=== PATIENT | male | born 1985 | race Caucasian/White ===

== ENCOUNTER 2017-06-11 02:26 | Observation (INO) | payer OTHER ==
[2017-06-11 03:30] LABS: % IMMATURE GRANULYOCYTES 0.3 % (0.0-1.1); ABSOLUTE IMMATURE GRANULOCYTES 0.03 10^3/uL (0.00-0.10); ADD DIFF? NO; ADD MORPH? NO; ADD SCAN? NO; ATYPICAL LYMPHOCYTE FLAG 10 (0-99); FRAGMENT RBC FLAG 0 (0-99); HEMATOCRIT 41.6 % (40.0-51.0); HEMOGLOBIN 15.4 g/dL (13.7-17.5); LEFT SHIFT FLG 0 (0-99); LIPEMIA HEMOLYSIS FLAG 90 (0-99); MEAN CELL HEMOGLOBIN 33.6 pg (27.9-34.1); MEAN CELL VOLUME 90.6 fL (81.5-99.8); MEAN PLATELET VOLUME 10.1 fL (8.7-11.7); PLATELET CLUMPS FLAG 10 (0-99); PLATELET COUNT 181 10^3/uL (150-400); RED BLOOD CELL COUNT 4.59 10^6/uL (4.40-6.38); RED CELL DISTRIBUTION WIDTH 12.3 % (11.5-15.2)
--- NOTE | 2017-06-11 03:31 | EDPHY ---
H & P Stated Complaint: c/o R facial swelling x 2 days related to tooth abcess, seen at Time Seen by Provider: 06/11/17 03:12 HPI/ROS: Chief Complaint: Facial swelling, tooth pain HPI: 31-year-old male presenting with right-sided tooth pain stents yesterday. He has a history of dental abscesses in the past. Patient was seen at urgent care yesterday and started on oral clindamycin. He has an appointment with a dentist later this afternoon. Patient woke up this morning with significantly worsening swelling in the right side of his face and worsening pain. Does not have any difficulty swallowing or breathing. Denies any fevers or chills. No headache. No nausea or vomiting. ROS: 10 point Review of Systems is negative except as noted in the HPI. PMH: Denies Family History: non-contributory Physical Exam: Gen: Awake, Alert, No Distress HEENT: Patient has significant right facial swelling infraorbitally down over the maxilla. There is no significant pre auricular swelling or tenderness. There is no palpable masses or fluctuance. His extensive dental caries. He has tenderness over the right upper premolars with significant dental decay. He has no trismus. Uvula is midline. No oral pharyngeal erythema. Eyes: PERRLA, EOMI Neck: Supple, no JVD Chest: nontender, lungs clear to auscultation Heart: S1, S2 normal, no murmur Abd: Soft, non-tender, no guarding Back: no CVA tenderness, no midline tenderness Ext: no edema, non-tender Skin: no rash Neuro: CN II-XII intact, Sensation grossly intact, Strength 5/5 in bilateral upper and lower extremities - Medical/Surgical History Hx Asthma: No Hx Chronic Respiratory Disease: No Hx Diabetes: No Hx Cardiac Disease: No Hx Renal Disease: No Hx Cirrhosis: No Hx Alcoholism: No Hx HIV/AIDS: No Hx Splenectomy or Spleen Trauma: No Other PMH: none - Social History Smoking Status: Current every day smoker Constitutional: Initial Vital Signs Temperature (C) 36.4 C 06/11/17 02:36 Heart Rate 100 06/11/17 02:36 Respiratory Rate 18 06/11/17 02:36 Blood Pressure 143/90 H 06/11/17 02:36 O2 Sat (%) 94 06/11/17 02:36 O2 Delivery Mode Room Air Allergies/Adverse Reactions: sulfamethoxazole [From Marra] Allergy (Severe, Verified 06/11/17 02:39) trimethoprim [From Marra] Allergy (Severe, Verified 06/11/17 02:39) Penicillins Allergy (Verified 06/11/17 02:39) Home Medications: Medication Instructions Recorded Clindamycin 06/11/17 Medical Decision Making ED Course/Re-evaluation: Patient has significant right-sided facial swelling secondary to a likely dental abscess. There is no drainable collection on exam at this time. He is failing outpatient oral clindamycin. He will need IV antibiotics and oral surgery consultation. I will discussed with the hospitalist with plan for admission for consultation in the morning. Case discussed with Dr. Sin, hospitalist. She will admit to observation with plan for oral surgery consultation later this morning. - Data Points Laboratory Results: Laboratory Results 06/11/17 03:28 06/11/17 06/11/17 03:28 03:28 WBC 8.58 10^3/uL 10^3/uL (3.80-9.50) RBC 4.59 10^6/uL 10^6/uL (4.40-6.38) Hgb 15.4 g/dL g/dL (13.7-17.5) Hct 41.6 % % (40.0-51.0) MCV 90.6 fL fL (81.5-99.8) MCH 33.6 pg pg (27.9-34.1) MCHC 37.0 g/dL H g/dL (32.4-36.7) RDW 12.3 % % (11.5-15.2) Plt Count 181 10^3/uL 10^3/uL (150-400) MPV 10.1 fL fL (8.7-11.7) Neut % (Auto) 60.8 % % (39.3-74.2) Lymph % (Auto) 24.7 % % (15.0-45.0) Sargent % (Auto) 11.9 % % (4.5-13.0) Eos % (Auto) 1.6 % % (0.6-7.6) Baso % (Auto) 0.7 % % (0.3-1.7) Nucleat RBC Rel Count 0.0 % % (0.0-0.2) Absolute Neuts (auto) 5.21 10^3/uL 10^3/uL (1.70-6.50) Absolute Lymphs (auto) 2.12 10^3/uL 10^3/uL (1.00-3.00) Absolute Monos (auto) 1.02 10^3/uL H 10^3/uL (0.30-0.80) Absolute Eos (auto) 0.14 10^3/uL 10^3/uL (0.03-0.40) Absolute Basos (auto) 0.06 10^3/uL 10^3/uL (0.02-0.10) Absolute Nucleated RBC 0.00 10^3/uL 10^3/uL (0-0.01) Immature Gran % 0.3 % % (0.0-1.1) Immature Gran # 0.03 10^3/uL 10^3/uL (0.00-0.10) Sodium Pending Potassium Pending Chloride Pending Carbon Dioxide Pending Anion Gap Pending BUN Pending Creatinine Pending Estimated GFR Pending Glucose Pending Calcium Pending Medications Given: Clindamycin Phosphate/Dextrose (Cleocin 600 Mg (Premix)) 50 mls @ 100 mls/hr IV EDNOW ONE PRN Reason: Protocol Stop: 06/11/17 04:01 Last Admin: 06/11/17 03:38 Dose: 50 mls Departure - Departure Disposition: [facility] Inpatient Acute Clinical Impression: Facial cellulitis, Dental abscess Condition: Fair Referrals: NONE *PRIMARY CARE P,. [Primary Care Provider] - As per Instructions
[2017-06-11] MEDS ORDERED: CLINDAMYCIN 600 MG/DEXTROSE 50 ML IV ONE (03:32)
[2017-06-11 03:52] LABS: ANION GAP 16 mEq/L (8-16); CALCIUM 8.8 mg/dL (8.5-10.4); CARBON DIOXIDE 22 mEq/l (22-31); CHLORIDE 106 mEq/L (97-110); CREATININE 0.8 mg/dL (0.7-1.3); GLOMERULAR FILTRATION RATE > 60; GLUCOSE 109 mg/dL (70-100); POTASSIUM 4.5 mEq/L (3.5-5.2); SODIUM 144 mEq/L (134-144)
[2017-06-11] MEDS ORDERED: ONDANSETRON DISINTEGRATING 4 MG TAB PO PRN (04:35)
[2017-06-11] MEDS ORDERED: diphenhydrAMINE 25 MG CAP PO PRN (04:35)
[2017-06-11] MEDS ORDERED: ACETAMINOPHEN 325 MG TAB PO PRN (04:35)
[2017-06-11] MEDS ORDERED: LORazepam 0.5 MG TAB PO PRN (04:35)
[2017-06-11] MEDS ORDERED: ONDANSETRON 4 MG/2 ML VIAL IVP PRN ×2 (04:35→18:10)
[2017-06-11] MEDS ORDERED: NS 1,000 ML IV SCH (04:45)
--- NOTE | 2017-06-11 07:38 | PDGENHP ---
History and Physical - Chief Complaint right facial swelling and pain - History of Present Illness Source - patient provides history and appears reliable. Case discussed with ED provider. HPI - Pleasant 31 yo M with pmhx significant for dental abscess and tobacco abuse who presents to the ED today with complaints of worsening right facial pain and swelling. Patient reports longstanding history of dental issues including abscesses. He has had increased pain/swelling right upper jaw. Patient went to see Dental provider yesterday and he was given clindamycin of which patient took 2 doses and advised to go to the ED for worsening symptoms as they were already extensive. Patient reports decreased vision 2/2 swelling right eyelid and not due to changes in unobstructed vision. Patient reports increasing pain right face/surrounding eye. He denies fevers but has had subjective chills since arrival to the floor. Patient reports some nausea without vomiting. alternating diarrhea/constipation but no melena/hematochezia. Patient denies any dysphagia or odynophagia. no c/o sob. History Information - Allergies/Home Medication List Allergies/Adverse Reactions: sulfamethoxazole [From ] Allergy (Severe, Verified 06/11/17 02:39) trimethoprim [From Marra] Allergy (Severe, Verified 06/11/17 02:39) Penicillins Allergy (Verified 06/11/17 02:39) Home Medications: Acetaminophen [Tylenol 325mg (*)] 650 mg PO Q6H PRN 06/11/17 [Last Taken Unknown ] Clindamycin HCl [Clindamycin] 300 mg PO TID 06/11/17 [Last Taken 06/10/17] Ibuprofen [Motrin (*)] 200 - 400 mg PO Q4H PRN 06/11/17 [Last Taken Unknown] I have personally reviewed and updated: family history, medical history, social history, surgical history - Past Medical History Additional medical history: dental abscesses. tobacco dependence - Surgical History Additional surgical history: dental extractions. tympanostomy tubes in childhood. - Family History Negative for: diabetes type II, hypertension - Social History Smoking Status: Current every day smoker Tobacco Use: Cigarettes (0.25 ppd) Alcohol Use: Occasionally Drug Use: Marijuana (1/mo.) Additional social history: Patient lives with 2 roommates. COR FULL - desires mother Kathi Freeman to act as proxy if needed. Review of Systems Review of Systems: ROS: 10pt was reviewed & negative except for what was stated in HPI & below Constitutional: Reports: chills. Denies: fever EENMT: Reports: mouth pain, mouth swelling. Denies: blurred vision, double vision, eye pain, nose congestion, sore throat, throat swelling Cardiac: Denies: chest pain, edema, palpitations Respiratory: Reports: no symptoms. Denies: cough, shortness of breath Gastrointestinal: Reports: constipation, diarrhea, nausea. Denies: vomitting, black stools Genitourinary: Denies: dysuria, hematuria Muscolosketal: Reports: no symptoms. Denies: joint pain, muscle pain Skin: Reports: no symptoms. Denies: change in color, rash Neurological: Reports: headache, numbness (right face), tingling (right face) Hematologic/Lymphatic: Reports: no symptoms Physical Exam Physical Exam: Selected Entries 06/11/17 02:36 Heart Rate 100 Respiratory 18 Rate O2 Sat (%) 94 Temperature (C) 36.4 C Blood Pressure 143/90 H Mean Arterial 107 H Pressure (MAP) O2 Delivery Room Air Mode Temperature Oral Source Temp Pulse Resp BP Pulse Ox 36.6 C 86 18 134/88 H 95 06/11/17 05:12 06/11/17 05:12 06/11/17 05:12 06/11/17 05:12 06/11/17 05:12 Constitutional: uncomfortable, other (NAD. young adult male lays quietly in bed laying still but awake. appears uncomfortable. ) Eyes: PERRL, anicteric sclera, EOMI Ears, Nose, Mouth, Throat: moist mucous membranes, poor dentition Cardiovascular: regular rate and rhythym, no murmur, rub, or gallop, systolic murmur, No edema Peripheral Pulses: 2+: dorsalis-pedis (R), dorsalis-pedis (L) Respiratory: no respiratory distress, no rales or rhonchi, clear to auscultation Gastrointestinal: normoactive bowel sounds, soft, non-tender abdomen, no palpable masses, No tenderness Genitourinary: no bladder tenderness, No coello in urethra Skin: warm, normal color, erythema, other (significant swelling of the right face and periorbitally is noted. patient with limited mobility of eyelid but is still able to open) Musculoskeletal: full muscle strength, No generalized weakness Neurologic: AAOx3, sensation intact bilaterally, numbness (right face), other ( limited CN testing 2/2 pain and edema. ), No weakness Lab Data & Imaging Review 06/11/17 03:28 06/11/17 03:28 WBC 8.58 10^3/uL (3.80-9.50) 06/11/17 03:28 RBC 4.59 10^6/uL (4.40-6.38) 06/11/17 03:28 Hgb 15.4 g/dL (13.7-17.5) 06/11/17 03:28 Hct 41.6 % (40.0-51.0) 06/11/17 03:28 MCV 90.6 fL (81.5-99.8) 06/11/17 03:28 MCH 33.6 pg (27.9-34.1) 06/11/17 03:28 MCHC 37.0 g/dL (32.4-36.7) H 06/11/17 03:28 RDW 12.3 % (11.5-15.2) 06/11/17 03:28 Plt Count 181 10^3/uL (150-400) 06/11/17 03:28 MPV 10.1 fL (8.7-11.7) 06/11/17 03:28 Neut % (Auto) 60.8 % (39.3-74.2) 06/11/17 03:28 Lymph % (Auto) 24.7 % (15.0-45.0) 06/11/17 03:28 Real % (Auto) 11.9 % (4.5-13.0) 06/11/17 03:28 Eos % (Auto) 1.6 % (0.6-7.6) 06/11/17 03:28 Baso % (Auto) 0.7 % (0.3-1.7) 06/11/17 03:28 Nucleat RBC Rel Count 0.0 % (0.0-0.2) 06/11/17 03:28 Absolute Neuts (auto) 5.21 10^3/uL (1.70-6.50) 06/11/17 03:28 Absolute Lymphs (auto) 2.12 10^3/uL (1.00-3.00) 06/11/17 03:28 Absolute Monos (auto) 1.02 10^3/uL (0.30-0.80) H 06/11/17 03:28 Absolute Eos (auto) 0.14 10^3/uL (0.03-0.40) 06/11/17 03:28 Absolute Basos (auto) 0.06 10^3/uL (0.02-0.10) 06/11/17 03:28 Absolute Nucleated RBC 0.00 10^3/uL (0-0.01) 06/11/17 03:28 Immature Gran % 0.3 % (0.0-1.1) 06/11/17 03:28 Immature Gran # 0.03 10^3/uL (0.00-0.10) 06/11/17 03:28 Sodium 144 mEq/L (134-144) 06/11/17 03:28 Potassium 4.5 mEq/L (3.5-5.2) 06/11/17 03:28 Chloride 106 mEq/L (97-110) 06/11/17 03:28 Carbon Dioxide 22 mEq/l (22-31) 06/11/17 03:28 Anion Gap 16 mEq/L (8-16) 06/11/17 03:28 BUN 12 mg/dL (7-23) 06/11/17 03:28 Creatinine 0.8 mg/dL (0.7-1.3) 06/11/17 03:28 Estimated GFR > 60 06/11/17 03:28 Glucose 109 mg/dL (70-100) H 06/11/17 03:28 Calcium 8.8 mg/dL (8.5-10.4) 06/11/17 03:28 Assessment & Plan Assessment: 31 yo M with hx dental abscess now presents with 1 day history of worsening right facial swelling/pain. 1. Facial cellulitis (Acute) - likely 2/2 dental abscess. periorbital involvement noted, no evidence of orbital cellulitis at this time. patient had only 2 doses clinda outpatient will continue with IV and monitor at this time. Patient does not meet SIRS criteria. Further discussion with oral surgery in AM , consider imaging as well if no improvement overnight. 2. Dental abscess (Acute) oral surgery as above 3. elevated blood pressure without history of HTN - likely related to pain. norco, morphine prn. 4. tobacco dependence - cessation encouraged. nicotine patch prn. FEN - IVF while npo. electrolyte replacement if needed. PPX - SCDs. holding anticoagulation pending surgery eval. COR - FULL. patient desires mother Kathi Freeman to act as proxy if needed. Dispo - Admit to observation at this time on medical floor.
[2017-06-11] MEDS: HYDROCODONE/APAP 5/325 TAB PO PRN ×2 (08:52→13:55)
[2017-06-11] MEDS: NICOTINE 21 MG/24 HR PATCH TD SCH (08:53)
[2017-06-11] MEDS ORDERED: IOPAMIDOL (ISOVUE-300) 100 ML BTL ONE (10:23)
[2017-06-11] MEDS ORDERED: CLINDAMYCIN 600 MG/DEXTROSE 50 ML IV SCH (12:00)
--- NOTE | 2017-06-11 14:06 | ASMTCMCOM ---
CM Note CM Note Notes: Pt admitted w/facial cellulitis possibly due to tooth abcess. DC needs not clear yet. Per chart he lives at home w/roommates. May be independant at dc but CM w/f in case that he may need IV ABX's or have other needs. Date Signed: 06/11/2017 02:05 PM Electronically Signed By:Lisette Allen RN
[2017-06-11] MEDS ORDERED: LR 1,000 ML IV ONE (16:32)
--- NOTE | 2017-06-11 16:45 | PDANEPAE ---
ANE History of Present Illness TOOTH ABSCESS ANE Past Medical History - Cardiovascular History Hx Hypertension: No Hx Arrhythmias: No Hx Chest Pain: No Hx Coronary Artery / Peripheral Vascular Disease: No Hx CHF / Valvular Disease: No Hx Palpitations: No - Pulmonary History Hx COPD: No Hx Asthma/Reactive Airway Disease: No Hx Recent Upper Respiratory Infection: No Hx Oxygen in Use at Home: No Hx Sleep Apnea: No Sleep Apnea Screening Result - Last Documented: Negative - Endocrine History Hx Diabetes: No Obesity: no - Chronic Pain History Chronic Pain: No ANE Review of Systems Review of systems is: negative Review of Systems: - Exercise capacity Exercise capacity: >=4 METS ANE Patient History - Allergies Allergies/Adverse Reactions: sulfamethoxazole [From Marra] Allergy (Severe, Verified 06/11/17 02:39) trimethoprim [From Septra] Allergy (Severe, Verified 06/11/17 02:39) Penicillins Allergy (Verified 06/11/17 02:39) - Home Medications Home medications: home medication list seen and reviewed Home Medications: Acetaminophen [Tylenol 325mg (*)] 650 mg PO Q6H PRN 06/11/17 [Last Taken Unknown ] Clindamycin HCl [Clindamycin] 300 mg PO TID 06/11/17 [Last Taken 06/10/17] Ibuprofen [Motrin (*)] 200 - 400 mg PO Q4H PRN 06/11/17 [Last Taken Unknown] - NPO status NPO Since - Liquids (Date): 06/11/17 NPO Since - Liquids (Time): 03:00 NPO Since - Solids (Date): 06/10/17 NPO Since - Solids (Time): 17:00 - Anes Hx Anes Hx: no prior problems - Smoking Hx Smoking Status: Current every day smoker - Alcohol Use Alcohol Use: Occasionally ANE Labs/Vital Signs - Labs Result Diagrams: 06/11/17 03:28 06/11/17 03:28 - Vital Signs Blood Pressure: 133/95 Heart Rate: 70 Respiratory Rate: 16 O2 Sat (%): 96 Height: 185.42 cm Weight: 97.625 kg ANE Physical Exam - Airway Neck exam: FROM Mallampati Score: Class 2 Mouth exam: small mouth opening - Pulmonary Pulmonary: no respiratory distress - Cardiovascular Cardiovascular: regular rate and rhythym - ASA Status ASA Status: II ANE Anesthesia Plan Anesthesia Plan: general endotracheal anesthesia Specialized Airway: video laryngoscope
[2017-06-11] MEDS ORDERED: LIDO/EPI 2%** Not for Epidural 20 ML MDV ONE (16:51)
[2017-06-11] MEDS ORDERED: BUPIVACAINE 0.25% 30 ML SDV ONE (16:51)
[2017-06-11] MEDS ORDERED: ALBUTEROL HFA ANES ONLY 200 PUFFS/8.5 GM MDI IH ONE (17:02)
[2017-06-11] MEDS ORDERED: PROPOFOL 200 MG/20 ML VIAL ONE ×2 (17:03)
[2017-06-11] MEDS ORDERED: fentaNYL 100 MCG/2 ML INJ ONE ×2 (17:03→17:50)
[2017-06-11] MEDS ORDERED: LIDOCAINE 2% JELLY 20 ML (UROJECT) ONE (17:05)
[2017-06-11] MEDS ORDERED: LIDOCAINE 2% JELLY 5 ML TUBE ONE (17:05)
[2017-06-11] MEDS ORDERED: OXYMETAZOLINE 30 ML NASAL SPRAY ONE (17:08)
[2017-06-11] MEDS ORDERED: CHLORHEXIDINE GLUCONATE 15 ML UDL ONE (17:10)
[2017-06-11] MEDS ORDERED: LIDOCAINE 2% 5 ML SDV ONE (17:15)
[2017-06-11] MEDS ORDERED: MIDAZOLAM 2 MG/2 ML VIAL ONE (17:20)
[2017-06-11] MEDS ORDERED: MIDAZOLAM 2 MG/2 ML VIAL IVP ONE (17:20)
[2017-06-11] MEDS ORDERED: ONDANSETRON 4 MG/2 ML VIAL ONE (17:23)
[2017-06-11] MEDS ORDERED: KETOROLAC 30 MG/1 ML SDV ONE (17:23)
[2017-06-11] MEDS ORDERED: DEXAMETHASONE 4 MG/ML VIAL ONE (17:23)
--- NOTE | 2017-06-11 17:24 | HOSPPROG ---
Hospitalist Progress Note Assessment/Plan: * Facial cellulitis -suspect dental abscess as source -IV clinda -consult ID - d/w Dr. Quick * Dental abscess -CT without large abscess -oral surgery consulted - d/w Dr. Vasquez * Tobacco dependence -advise cessation Subjective: no complaints Objective: Vital Signs Temp Pulse Resp BP Pulse Ox 36.8 C 70 16 133/95 H 96 06/11/17 16:27 06/11/17 16:46 06/11/17 16:46 06/11/17 16:46 06/11/17 16:[address] - no big abscess Laboratory Tests 06/11/17 03:28 WBC 8.58 Hct 41.6 Plt Count 181 - Physical Exam Constitutional: no apparent distress, appears nourished, not in pain Cardiovascular: regular rate and rhythym, no murmur, rub, or gallop Respiratory: no respiratory distress, no rales or rhonchi, clear to auscultation Gastrointestinal: normoactive bowel sounds, soft, non-tender abdomen, no palpable masses Skin: other (large swelling right side of face, minimal erythema, saeed-orbital swelling) Musculoskeletal: full muscle strength, no muscle tenderness, normal joint ROM Psychiatric: interacting appropriately, not anxious, not encephalopathic, thought process linear ICD10 Worksheet Patient Problems: Problems Problem Status Onset Dental abscess Acute Facial cellulitis Acute
[2017-06-11] MEDS ORDERED: HYDROCODONE/APAP 5/325 TAB PO PRN (18:10)
[2017-06-11] MEDS ORDERED: ACETAMINOPHEN 500 MG TAB PO PRN (18:10)
[2017-06-11] MEDS ORDERED: OXYCODONE/APAP 5/325 TAB PO PRN (18:10)
[2017-06-11] MEDS ORDERED: ALBUTEROL 3 ML DEYVIAL IH PRN (18:10)
[2017-06-11] MEDS ORDERED: fentaNYL 100 MCG/2 ML INJ IVP PRN (18:10)
[2017-06-11] MEDS ORDERED: PROMETHAZINE HCL 25 MG/ML INJ IVP PRN (18:10)
[2017-06-11] MEDS ORDERED: NALOXONE HCL 0.4 MG/ML INJ IVP PRN (18:10)
[2017-06-11] MEDS ORDERED: HYDROmorphONE/DILAUDID 1 MG/ML INJ IVP PRN (18:10)
--- NOTE | 2017-06-11 18:10 | POSTANESTH ---
Post Anesthetic Evaluation Cardiovascular Status: Normal, Stable Respiratory Status: Normal, Stable Level of Consciousness/Mental Status: Can Participate in Eval Pain Control: Adequate, Prn Tx Ordered Nausea/Vomiting Control: Adequate, Prn Tx Ordered Complications Possibly Related to Anesthesia: None Noted
--- NOTE | 2017-06-11 18:11 | GCON ---
[f rep st] CONSULTATION INFECTION DISEASES CONSULTATION DATE OF CONSULTATION: 06/11/2017 REFERRING PHYSICIAN: Joie Rosen MD REASON FOR CONSULTATION: Facial cellulitis. HISTORY OF PRESENT ILLNESS: Patient is a 31-year-old male with a past medical history of frequent od ontogenic abscesses, whom I am asked to see in consultation for a right-sided facial cellulitis. The patient describes having a root canal on an upper molar along the right maxillary ridge approximatel y 3.5 weeks ago. Prior to his root canal, he had been taking oral clindamycin. Yesterday, he awoke with facial pain and swelling just above the tooth overlying the cheek. This progressed and was asso ciated with faint erythema below the right eye, which became swollen shut. He was seen in urgent car e and started on oral clindamycin. He was advised if symptoms worsened that he should seek care in [facility] emergency department. Despite the oral clindamycin, his symptoms progressed with more facial swel ling and difficulty opening his mouth. He, therefore, presented to the emergency department for furt her evaluation. He has not had fevers, but he does describe having some chills. He has not had martine k eye pain or visual disturbance other than that caused by when his eye was swollen shut. His eye is no longer swollen shut. He has had some mild nausea, but no vomiting. He describes having some alt ernating diarrhea and constipation. His oral intake has been limited due to difficulty opening his m outh. He does not have any anterior neck pain. He describes requiring hospital admission several ye ars ago associated with an odontogenic abscess that required drainage. Patient has been started on I V clindamycin as he has an underlying penicillin allergy. Based on the above findings, I am now aske d to assist in his ongoing management. PAST MEDICAL HISTORY: Recurrent odontogenic abscess. PAST SURGICAL HISTORY: Dental extractions. CURRENT MEDICATIONS: Clindamycin 600 mg IV q.8 hours, Hardin as needed for pain, Ativan as needed for anxiety, morphine as needed for pain. ALLERGIES: Penicillin as a child, which he states caused hospitalization for several days; sulfonami joel with unclear reaction as a child. SOCIAL HISTORY: Patient smokes 1/2 pack per day. He drinks alcohol socially. Occasional marijuana use. Prior HIV testing has been negative. FAMILY HISTORY: Alcoholism in his father, Graves disease in his mother. REVIEW OF SYSTEMS: Outside that noted in the HPI, the remainder of a 10-system review is unremarkabl e. PHYSICAL EXAMINATION: VITAL SIGNS: Temperature 36.7, heart rate 83, respiratory rate 16, blood pres sure 137/96, oxygen saturation 95% on room air. GENERAL: Patient is well nourished, well developed, in no acute distress. He appears nontoxic. HEENT: There is no scleral icterus, conjunctival injec tion, or conjunctival petechiae. There is faint erythema underlying the right infraorbital region. This area has associated edema. The edema extends over the majority of the patient's cheek. He is t baron over the maxillary region to palpation. Extraocular muscles are intact. There is no proptosis . The patient has significant tenderness to palpation over a predominantly resorbed tooth on the rig ht maxillary ridge. There is no nasal discharge or erythema. There is no tenderness over the sinuse s other than the right maxillary region. NECK: Supple without palpable lymphadenopathy or thyromega ly. There is no erythema over the anterior neck. There is no palpable fluctuance or crepitus. CHES T: Clear to auscultation bilaterally without adventitious sounds. Respiratory effort is normal. CA RDIOVASCULAR: Regular rate and rhythm without murmurs, gallops, or rubs. ABDOMEN: Soft, nontender, nondistended. There is no palpable organomegaly. Bowel sounds are present. MUSCULOSKELETAL: No c yanosis, clubbing, or edema. SKIN: See HEENT exam; there are no stigmata of endocarditis. Skin is warm and dry to touch. NEUROLOGIC: Patient is alert and interacts appropriately with examiner. Commercial Engineer nial nerves 2-12 are grossly intact. Sensation is grossly intact. Muscle tone and bulk are normal. LYMPHATICS: No cervical or supraclavicular nodes palpable. LABORATORY DATA: White blood cell count 8.6, hematocrit 41.6, platelets 181, neutrophils 61%, lympho cytes 25%. Serum creatinine is 0.8. IMAGING DATA: CT scan of the face shows no evidence of abscess; these images are reviewed with Radio logy today showing some periapical lucency around the small residual tooth on the right maxillary rid ge. There is some thickening of the right maxillary sinus without air-fluid level. IMPRESSION: Right facial cellulitis, likely of odontogenic etiology given onset associated with incr easing tenderness in residual right maxillary tooth that is status post root canal 3.[address] likely, this will be associated with odontogenic chris. Appearance is not suggestive of other maria dolores ologies such as erysipelas. Patient has a remote history of penicillin allergy, which is difficult t o further characterize. Given some resistance in streptococcal species to clindamycin, will change a ntibiotic therapy to ertapenem. Discussed with patient that cross-reactivity may exist between penic illin and ertapenem, although based on remote history of allergy, suspect will be tolerated. Carmela ellis will require dental extraction for resolution of clinical findings. RECOMMENDATIONS: 1. Ertapenem 1 g IV daily. 2. Discontinue clindamycin. 3. Agree with oral surgery consultation to assess for dental extraction. 4. Follow clinical response over time to above measures. Thank you for this consultation. We will continue to follow the patient with you. /[id number]/MODL
--- NOTE | 2017-06-11 18:12 | SOAPPROG ---
SOAP Progress Note Assessment/Plan: s: Asked to consult on this healthy 31 yo male with recent onset swelling of the right buccal and orbital areas secondary to a painful, infected tooth. Seen in ED last pm started on IV Clindamycin this AM. CT shows no tatiana abscess but progressing cellulitis in the right buccal space and overlying orbital areas stemming from a fx #5 o: #5 fractured, mobile, swelling in the buccal vestibule, extends to inferior border of the mandible. OD with eccymosis and swelling secondary to infection. MVO 50 mm with some pain, no palatal drape, no evidence of airway embarrassment. a/p progressing cellulitis #5 1- NPO since this AM 2- Take to OR for extraction of #5 and I and D of cellulitic area with debridement and drain. 06/11/17 18:08 Objective: Vital Signs Temp Pulse Resp BP Pulse Ox 36.8 C 70 16 133/95 H 96 06/11/17 16:27 06/11/17 16:46 06/11/17 16:46 06/11/17 16:46 06/11/17 16:46 ICD10 Worksheet Patient Problems: Problems Problem Status Onset Dental abscess Acute Facial cellulitis Acute
[2017-06-11] MEDS ORDERED: HYDROmorphone HCL/NS/PF 0.4 MG/2 ML SYR IVP PRN (18:16)
[2017-06-11] MEDS: ERTAPENEM 1 GM VIAL IVP SCH (18:26)
[2017-06-11] MEDS: OXYCODONE/APAP 5/325 TAB PO PRN (20:39)
--- NOTE | 2017-06-12 01:02 | GOP ---
[f rep st] OPERATIVE REPORT DATE OF OPERATION: SURGEON: Eric Vasquez DDS PREOPERATIVE DIAGNOSIS: Cellulitis of the right buccal and orbital areas; fractured and carious tooth #5. POSTOPERATIVE DIAGNOSIS: Cellulitis of the right buccal and orbital areas; fractured and carious tooth #5. PROCEDURE PERFORMED: extract # 5 and incision and drainage of right buccal and infraorbital spaces FINDINGS: Carious #5 and developing abscess in fascial spaces INDICATIONS: This is a healthy 31-year-old man who was seen by his general dentist approximately 48 hours ago with rapidly increasing swelling in the right orbital and buccal areas stemming from a painful tooth #5. He was turned away and sent to the ER where he was seen and admitted secondary to swelling. It was determined that tooth #[address] scan was taken and it noted that a cellulitis was stemming from a nonrestorable #5. DESCRIPTION OF PROCEDURE: The patient was taken to the operating room after being consented for extraction of tooth #5 with incision and drainage of the right buccal space and periorbital areas. The patient was placed on the operating room table in the supine position. He was then induced under general anesthesia and orotracheally intubated. He was then prepped and draped in a standard oral maxillofacial surgical fashion. Approximately 10 cc of 1% lidocaine with 1:100,000 epinephrine was infiltrated intraorally. Tooth #5 was then extracted surgically. The area was debrided with a curette. Attention was then turned to fluctuance in the vestibule and a #15 blade was introduced down to the bone into the buccal space. A mosquito hemostat was then introduced into the buccal space and the buccal space was drained of serosanguineous fluid, adjacent spaces were explored also. The area was then irrigated copiously and a quarter-inch Cris drain was introduced into the buccal space and secured using a 3-0 silk suture. The throat pack was then removed. The patient was then turned over the anesthesia service and he was brought out of general anesthesia, and sent to the PACU in stable condition. There was approximately 10 cc of blood loss. There was 1 Cris drain. There were no specimens with approximately 500 cc of lactated Ringer's. /[id number]/MODL MTDD
[2017-06-12 04:38] VITALS: O2SAT 96
[2017-06-12 05:06] LABS: % IMMATURE GRANULYOCYTES 0.3 % (0.0-1.1); ABSOLUTE IMMATURE GRANULOCYTES 0.03 10^3/uL (0.00-0.10); ADD DIFF? NO; ADD MORPH? NO; ADD SCAN? NO; ATYPICAL LYMPHOCYTE FLAG 0 (0-99); FRAGMENT RBC FLAG 0 (0-99); HEMATOCRIT 41.1 % (40.0-51.0); HEMOGLOBIN 15.3 g/dL (13.7-17.5); LEFT SHIFT FLG 0 (0-99); LIPEMIA HEMOLYSIS FLAG 90 (0-99); MEAN CELL HEMOGLOBIN 34.1 pg (27.9-34.1); MEAN CELL HEMOGLOBIN CONCENTR. 37.2 g/dL (32.4-36.7); MEAN CELL VOLUME 91.5 fL (81.5-99.8); MEAN PLATELET VOLUME 10.5 fL (8.7-11.7); PLATELET CLUMPS FLAG 10 (0-99); PLATELET COUNT 174 10^3/uL (150-400); RED BLOOD CELL COUNT 4.49 10^6/uL (4.40-6.38); RED CELL DISTRIBUTION WIDTH 11.8 % (11.5-15.2)
[2017-06-12 08:12] VITALS: BP 136/90; PULSE 80; RESP 12; TEMP 98.6
[2017-06-12] MEDS: ERTAPENEM 1 GM VIAL IVP SCH (08:56)
[2017-06-12] MEDS: NICOTINE 21 MG/24 HR PATCH TD SCH (08:57)
[2017-06-12] MEDS: OXYCODONE/APAP 5/325 TAB PO PRN (08:58)
--- NOTE | 2017-06-12 10:19 | PCMIDPN ---
Assessment/Plan: Assessment/Plan: * Right-sided facial/periorbital cellulitis of odontogenic etiology status post dental extraction and drainage of buccal space: Feels significantly improved and wants to go home. Given clinical improvement, think feasible to discharge with continued IV ertapenem on 3 East x3 additional days. Will have follow-up in my office on Wednesday for repeat assessment at which point in time likely can transition to p.o. antibiotics. Side effects of antibiotic loading allergic action and potential for C difficile discussed with patient. 06/12/17 10:16 Subjective: Patient status post dental extraction drainage of buccal space yesterday. Feels significantly improved with improved range of motion of mouth pain. Eager to home. Able to eat soft foods this a.m.. Objective: Vital Signs Temp Pulse Resp BP Pulse Ox 37.0 C 80 12 136/90 H 96 06/12/17 08:00 06/12/17 08:00 06/12/17 08:00 06/12/17 08:00 06/12/17 08:00 Laboratory Results 06/12/17 04:20 06/11/17 06/12/17 06/13/17 05:59 05:59 05:59 Intake Total 500 Output Total 5 Balance 495 Ertapenem #2 Operative note reviewed - Physical Exam General Appearance: alert, no apparent distress EENT: other (Improved range of motion of mouth, faint erythema in infraorbital region, edema over right maxillary area persists but is decreased, no proptosis , EOMI) Neck: non-tender (Anteriorly), supple Cardiac/Chest: regular rate, rhythm, No systolic murmur ICD10 Worksheet Patient Problems: Problems Problem Status Onset Dental abscess Acute Facial cellulitis Acute
--- NOTE | 2017-06-12 12:39 | ASMTCMCOM ---
CM Note CM Note Notes: Spoke w/Dr Quick this morning who said pt will need IV ABX's for 3 more days (til wednesday this week). Pt agreeable to coming to [facility] infusion center who was notified by Dr Quick. Pt would like to have 1 PM time slot-charge master analyst let infusion center know. Pt dc'd from hosp before I could see him but RN explained infusion center details to him and he understood. Pt dc'd t to home independantly and will come to [facility] infusion center tomorrow. Date Signed: 06/12/2017 12:39 PM Electronically Signed By:Lisette Allen, RN
--- NOTE | 2017-06-12 12:40 | ASDISCHSUM ---
Discharge Information Plan Status:IV ABX/Infusion Medically Cleared to Leave: Discharge Date:06/12/2017 11:39 AM CM D/C Disposition:Home, Routine, Self-Care ADT D/C Disposition:Home, Routine, Self-Care Projected Discharge Date:06/12/2017 11:39 AM Transportation at D/C: Discharge Delay Reason: Follow-Up Date:06/12/2017 11:39 AM Discharge Slot: Final Diagnosis: Placement Information Patient Contact Information Contact Name:KHAI Relationship:Other Address: City: [facility] Phone: State/Zip Code: Email: Financial Information Financial Class:HMO and PPO Plans Primary Plan Desc:[employer] PPO POS HMO SIG ADM Primary Plan Number:[id number] Secondary Plan Desc: Secondary Plan Number: Assessment Information [facility] CM Progress Note CM Note CM Note Notes: Pt admitted w/facial cellulitis possibly due to tooth abcess. DC needs not clear yet. Per chart he lives at home w/roommates. May be independant at dc but CM w/f in case that he may need IV ABX's or have other needs. Date Signed: 06/11/2017 02:05 PM Electronically Signed By:Lisette Allen RN [facility] CM Progress Note CM Note CM Note Notes: Spoke w/Dr Quick this morning who said pt will need IV ABX's for 3 more days (wednesday this week). Pt agreeable to coming to [facility] infusion center who was notified by Dr Quick. Pt would like to have 1 PM time slot-spectrographer let infusion center know. Pt dc'd from hosp before I could see him but RN explained infusion center details to him and he understood. Pt dc'd t to home independantly and will come to [facility] infusion center tomorrow. Date Signed: 06/12/2017 12:39 PM Electronically Signed By:Lisette Allen RN Intervention Information
--- NOTE | 2017-06-12 19:01 | GDS ---
[f rep st] DISCHARGE SUMMARY DISCHARGE DIAGNOSES: 1. Facial cellulitis. 2. Dental abscess, status post incision and drainage. 3. Tobacco dependence. HISTORY: The patient is a 31-year-old male, who has a known dental abscess which has progressed to f acial cellulitis, presenting to the emergency room. He initially received IV clindamycin, but was larson bsequently seen in consultation with Dr. Quick, who switched him to IV Invanz. His facial CT was rela tively unremarkable, although a small dental abscess was uncovered. Dr. Vasquez with Oral Surgery saw him in consultation, and performed surgery as an inpatient to remove the infected tooth, along wi th an I and D. He will follow up with Dr. Vasquez in the office. The facial cellulitis has improv ed, but Dr. Quick would like him to remain on IV antibiotics for 3 more doses, which will be obtained through the Infusion Center on . He will then follow up with Dr. Quick in the office to transit ion to oral antibiotics. DISCHARGE MEDICATIONS: Please see computerized record for full detailed list. NEW MEDICATIONS: 1. Invanz 1 g IV daily for 3 more doses, and then follow up with Dr. Bragg for transition to oral ant ibiotic therapy. 2. Percocet 5/325, 1-2 every 4 hours as needed, 10 tablets dispensed. ADDITIONAL DISCHARGE INSTRUCTIONS: 1. Follow up at Infusion Center on for ongoing for daily IV antibiotics. 2. Follow up with Dr. Vasquez, Oral Surgery, in his office this upcoming week. The patient to [facility] Wednesday morning for appointment. 3. Smoking cessation advised. Greater than 30 minutes' time spent arranging this discharge. The patient was seen and examined by teresita aggarwal on the day of discharge. /[id number]/MODL
== END 2017-06-12 11:39 | disposition home or self-care (01) ==
LOC: F3N 04:51
PROVIDERS: ADMIT Family Medicine; ATTEND Internal Medicine
DX: L03.211 Cellulitis of face (principal); K04.7 Periapical abscess without sinus; T81.4XXA Infection following a procedure, initial encounter; K03.81 Cracked tooth; F17.210 Nicotine dependence, cigarettes, uncomplicated
CPT/HCPCS: 40800; 41899; 70487; 96365; 99285; G0378; J0171; J1100; J1335; J1885; J2250; J2405; J2704; J3010; Q9967

== ENCOUNTER 2017-11-20 08:15 | Emergency (ER) | payer OTHER ==
--- NOTE | 2017-11-20 08:50 | EDPHY ---
H & P Stated Complaint: Stood up "too fast" after smoking ~1am;?syncope,lac below L eyebrow Time Seen by Provider: 11/20/17 08:48 HPI/ROS: HPI: This is a 31-year-old male who presents with Chief Complaint: Stood up "too fast" after smoking ~1am;?syncope,lac below L eyebrow Location: left eyebrow Quality: laceration Duration: 7 hours prior to arrival Signs and Symptoms: No bleeding, no radiation, no numbness, no weakness, no tingling, no incontinence, no decreased range of motion, no swelling, no pain, no fever Timing: Acute Severity: Mild Context: Patient presents to the emergency room with laceration below his left eyebrow that occurred approximately around 1:00 a.m.; 7 hr prior to arrival. Reports that he was drinking alcohol all day yesterday and into last night last night. He actually went to bed and then woke up several hours later. He went outside to smoke a cigarette with his girlfriend when he started to feel lightheaded and dizzy. Patient reports that he lost his balance and hit the wall of his house which is brick. Reports tetanus is current. Denies LOC/head injury/neck pain/dizziness/nausea/vomiting/amnesia. This was a witnessed episode by his girlfriend. Did not drink hardly any water yesterday and only ate 1 meal. Denies chest pain/shortness of breath/vision changes. Girlfriend washed his eyebrow laceration out with soap and water and hydrogen peroxide. They decided to come in because despite butterfly bandages the wound continued to bleed. Modifying Factors: See above Comment: ROS: see HPI Constitutional: No fever, no chills, no weight loss Eyes: No blurred vision Respiratory: No shortness of breath, no cough Cardiovascular: No chest pain Gastrointestinal: No nausea, no vomiting no diarrhea Genitourinary: No dysuria Extremities: No myalgias Neurologic: No weakness, no numbness Skin: No rashes Hematologic: No bruising, no bleeding MEDICAL/SURGICAL/SOCIAL HISTORY: Medical history: Periodontal disease. Does not take any regular medications. Surgical history: Denies Social history: Tobacco use. CONSTITUTIONAL: Stools intoxicated adult white male, smells of alcohol, girlfriend at bedside, awake and alert, no obvious distress HEENT: normocephalic, PERRL, EOMI. no globe entrapment, no raccoon eyes. no Willams signs. Mild purplish ecchymosis noted inferior to left eyebrow sparing the orbit. 1 inch linear, simple, superficial, laceration inferior to the left eyebrow. Tympanic membranes clear. No tympanic membrane rupture. Nares patent; no septal hematoma. Oropharynx clear, no exudate and moist pink mucosa. No malocclusion. no dental trauma. Airway patent. No lymphadenopathy. NECK: supple, no midline tenderness, flexion 45 degrees, extension 45 degrees, right and left lateral flexion 45 degrees. No meningismus. Cardiovascular: Normal S1/S2, regular rate, regular rhythm, without murmur rub or gallop. PULMONARY/CHEST: Symmetrical and nontender. no crepitus. Clear to auscultation bilaterally. Good air movement. No accessory muscle usage. ABDOMEN: Soft, nondistended, nontender, no ecchymosis, no rebound, no guarding , no peritoneal signs, no masses or organomegaly. No CVAT. EXTREMITIES: 2/2 pulses, no deformities, no clubbing, no cyanosis or edema. NEUROLOGICAL: no focal neuro deficits. GCS 15. SKIN: Warm and dry, no erythema. no rash. Good capillary refill. Source: Patient Exam Limitations: No limitations - Personal History Current Tetanus Diphtheria and Acellular Pertussis (TDAP): Yes - Medical/Surgical History Hx Asthma: No Hx Chronic Respiratory Disease: No Hx Diabetes: No Hx Cardiac Disease: No Hx Renal Disease: No Hx Cirrhosis: No Hx Alcoholism: No Hx HIV/AIDS: No Hx Splenectomy or Spleen Trauma: No Other PMH: dental abcesses - Social History Smoking Status: Current every day smoker Constitutional: Initial Vital Signs Temperature (C) 36.8 C 11/20/17 08:20 Heart Rate 96 11/20/17 08:20 Respiratory Rate 16 11/20/17 08:20 Blood Pressure 144/100 H 11/20/17 08:20 O2 Sat (%) 96 11/20/17 08:20 O2 Delivery Mode Room Air Allergies/Adverse Reactions: Penicillins Allergy (Unknown, Verified 11/20/17 08:19) as kid sulfamethoxazole [From ] Allergy (Unknown, Verified 11/20/17 08:19) as kid trimethoprim [From ] Allergy (Unknown, Verified 11/20/17 08:19) as kid Home Medications: Medication Instructions Recorded NK [No Known Home Meds] 11/20/17 Medical Decision Making Procedures: Procedure: Laceration repair. Verbal consent was obtained from the patient. The 1 in, complex, superficial, linear laceration inferior to left eyebrow was anesthetized in the usual fashion using 5 mL 0.5% bupivacaine with epinephrine. The wound was irrigated, draped and explored to its base with a gloved finger. There were no deep structures involved. No tendon injury was identified. The wound was repaired with 2 layer closure; subcutaneous layer was 6 0 Vicryl buried sutures in horizontal pattern; cutaneous layer was #3, 6 0 Vicryl. Good hemostasis was achieved and patient tolerated procedure well. Bacitracin applied. The procedure was performed by myself. ED Course/Re-evaluation: Placed on monitor upon arrival; mild sinus tachycardia heart rate 107-110 BMP labs drawn and given 1 L normal saline Based on French head CT protocol; head CT imaging not indicated. No neurological deficits. No indication to indicate arrhythmias/acute coronary syndrome Suspect hypovolemia and intoxication caused the fall. Offered patient plastic surgery consult and he politely declined. Laceration repaired with absorbable sutures in 2 layer closure. Labs reviewed: Consistent with alcohol intoxication. No signs of acute kidney injury/severe electrolyte imbalance. 1020: Reassessed patient. Reports feeling better. Advised continue supportive care. This patient was seen under the supervision of my secondary supervising physician. I evaluated care for this patient independently. Differential Diagnosis: Head injury including but not limited to concussion, skull fracture, intraparenchymal contusion, subarachnoid, subdural and epidural hematoma. - Data Points Laboratory Results: Laboratory Results 11/20/17 09:28 11/20/17 09:28 Sodium 147 mEq/L H mEq/L (135-145) Potassium 4.5 mEq/L mEq/L (3.5-5.2) Chloride 103 mEq/L mEq/L (97-110) Carbon Dioxide 20 mEq/l L mEq/l (22-31) Anion Gap 24 mEq/L H mEq/L (8-16) BUN 10 mg/dL mg/dL (7-23) Creatinine 0.8 mg/dL mg/dL (0.7-1.3) Estimated GFR > 60 Glucose 62 mg/dL L mg/dL (70-100) Calcium 8.7 mg/dL mg/dL (8.5-10.4) Medications Given: Discontinued Medications Sodium Chloride (Ns) 1,000 mls @ 0 mls/hr IV EDNOW ONE; Wide Open PRN Reason: Protocol Stop: 11/20/17 09:22 Last Admin: 11/20/17 09:41 Dose: 1,000 mls Departure - Departure Disposition: Home, Routine, Self-Care Clinical Impression: Laceration of left eyebrow without complication Qualifiers: Encounter type: initial encounter Qualified Code(s): S01.112A - Laceration without foreign body of left eyelid and periocular area, initial encounter Alcohol intoxication Qualifiers: Complication of substance-induced condition: uncomplicated Qualified Code(s): F10.920 - Alcohol use, unspecified with intoxication, uncomplicated Closed head injury Qualifiers: Encounter type: initial encounter Qualified Code(s): S09.90XA - Unspecified injury of head, initial encounter Contusion of left orbital tissues Qualifiers: Encounter type: initial encounter Qualified Code(s): S05.12XA - Contusion of eyeball and orbital tissues, left eye, initial encounter Condition: Good Instructions: Concussion (ED), Care For Your Absorbable Stitches (ED), Facial Laceration (ED), Black Eye (ED) Additional Instructions: Remember that you did sustain a head injury. You are at risk to develop a concussion or postconcussion syndrome. Please observe concussion precautions. Consume a minimum of 8-10 glasses of water or electrolyte fluid replacement drinks that include Gatorade, Powerade, Pedialyte. Eat a bland diet for the next 48 hours and then slowly advance as tolerated. Keep the dressing dry and in place for 48 hours. After 48 hours, you may remove the dressing; wash the site daily with mild soap and water; then pat dry. Take Tylenol 650 mg every 4 hours and/or Ibuprofen 600 mg every 8 hours with food as needed for pain. Apply ice for 30 minutes at a time; 2-3 times per day for the next 1-2 days. The sutures used to close your laceration today were absorbable. They do not need to be removed as they will slowly dissolve over time. Please refrain from drinking alcohol in the next 48 hr. Return to the ER immediately if you have progressive headaches, neurologic deficits, gait abnormality, visual disturbance, slurred speech, or any other symptom that concerns you. Referrals: PCP Not In,Dictionary [Medical Doctor] - As per Instructions [facility],. [Clinic] - 5-7 days, if not improved
[2017-11-20] MEDS ORDERED: NS 1,000 ML IV ONE (09:21)
[2017-11-20 10:34] VITALS: BP 145/100
== END 2017-11-20 10:34 | disposition home or self-care (01) ==
PROC: 0HQ1XZZ Repair Face Skin, External Approach (ICD-10-PCS; principal; 2017-11-20)
DX: S01.112A Laceration without foreign body of left eyelid and periocular area, initial encounter (principal); S09.90XA Unspecified injury of head, initial encounter; S05.12XA Contusion of eyeball and orbital tissues, left eye, initial encounter; F10.920 Alcohol use, unspecified with intoxication, uncomplicated; E86.9 Volume depletion, unspecified; F17.210 Nicotine dependence, cigarettes, uncomplicated; W22.01XA Walked into wall, initial encounter; Y92.009 Unspecified place in unspecified non-institutional (private) residence as the place of occurrence of the external cause; Y99.8 Other external cause status; Y93.89 Activity, other specified

== ENCOUNTER 2018-02-02 06:45 | Emergency (ER) | payer OTHER ==
--- NOTE | 2018-02-02 07:20 | EDPHY ---
H & P Stated Complaint: vomiting blood Time Seen by Provider: 02/02/18 07:19 HPI/ROS: CHIEF COMPLAINT: Hematemesis and melena HISTORY OF PRESENT ILLNESS: The patient presents to the ED with a one-week history of hematemesis and melena. This is been occurring episodically. He was urgent care last week and advised to take ranitidine and Prilosec which he has been taking. The patient had recurrent hematemesis this morning. He does have a history of using NSAIDs for dental pain. The patient has a history of alcohol dependence and has continued to drink. The patient denies any additional significant medical problems. The patient takes no regular prescription medications. The patient does complain of mild to moderate abdominal pain which is poorly localized. REVIEW OF SYSTEMS: A comprehensive 10 point review of systems is otherwise negative aside from elements mentioned in the history of present illness. Source: Patient - Personal History Current Tetanus/Diphtheria Vaccine: Yes Current Tetanus Diphtheria and Acellular Pertussis (TDAP): Yes - Medical/Surgical History Hx Asthma: No Hx Chronic Respiratory Disease: No Hx Diabetes: No Hx Cardiac Disease: No Hx Renal Disease: No Hx Cirrhosis: No Hx Alcoholism: No Hx HIV/AIDS: No Hx Splenectomy or Spleen Trauma: No Other PMH: dental abcesses - Social History Smoking Status: Current every day smoker - Physical Exam Exam: General Appearance: Alert, no distress Eyes: Pupils equal and round no pallor or injection ENT, Mouth: Mucous membranes moist Respiratory: There are no retractions, lungs are clear to auscultation Cardiovascular: Regular rate and rhythm Gastrointestinal: Epigastric tenderness to palpation Neurological: 5/5 strength all 4 extremities Skin: Warm and dry, no rashes Musculoskeletal: Neck is supple nontender Extremities: symmetrical, full range of motion Constitutional: Initial Vital Signs Temperature (C) 36.6 C 02/02/18 07:00 Heart Rate 87 02/02/18 07:00 Respiratory Rate 16 02/02/18 07:00 Blood Pressure 150/109 H 02/02/18 07:00 O2 Sat (%) 97 02/02/18 07:00 O2 Delivery Mode Room Air Allergies/Adverse Reactions: Penicillins Allergy (Unknown, Verified 02/02/18 06:59) as kid sulfamethoxazole [From Marra] Allergy (Unknown, Verified 02/02/18 06:59) as kid trimethoprim [From Septra] Allergy (Unknown, Verified 02/02/18 06:59) as kid Home Medications: Medication Instructions Recorded Famotidine 02/02/18 Omeprazole 02/02/18 Medical Decision Making ED Course/Re-evaluation: The patient presents the ED with intermittent hematemesis in the setting of NSAID usage. The patient is currently taking twice a day proton pump inhibitor and ranitidine. He is hemodynamically stable. He had no hematemesis in the emergency department. His laboratory studies are within normal limits aside from a mild transaminitis. I did discuss the case with Dr. Teran. Given the patient's stability he appears appropriate for outpatient management. The patient will be advised to be on twice a day Protonix which she has been provided a prescription for. The patient will contact Gastroenterology today and schedule an outpatient EGD. They will see the patient in follow-up in the next several days. The patient is advised to return to the ED for heavy bleeding, severe pain or other concerns. Differential Diagnosis: Differential diagnosis considered includes upper GI bleed, lower GI bleed, critical anemia, and duodenal ulcer, gastritis - Data Points Laboratory Results: Laboratory Results 02/02/18 07:25 02/02/18 07:25 02/02/18 02/02/18 02/02/18 07:25 07:25 07:25 WBC 5.41 10^3/uL 10^3/uL (3.80-9.50) RBC 5.03 10^6/uL 10^6/uL (4.40-6.38) Hgb 16.8 g/dL g/dL (13.7-17.5) Hct 45.9 % % (40.0-51.0) MCV 91.3 fL fL (81.5-99.8) MCH 33.4 pg pg (27.9-34.1) MCHC 36.6 g/dL g/dL (32.4-36.7) RDW 12.1 % % (11.5-15.2) Plt Count 197 10^3/uL 10^3/uL (150-400) MPV 9.9 fL fL (8.7-11.7) Neut % (Auto) 52.5 % % (39.3-74.2) Lymph % (Auto) 32.3 % % (15.0-45.0) Granite % (Auto) 10.7 % % (4.5-13.0) Eos % (Auto) 2.4 % % (0.6-7.6) Baso % (Auto) 1.5 % % (0.3-1.7) Nucleat RBC Rel Count 0.0 % % (0.0-0.2) Absolute Neuts (auto) 2.84 10^3/uL 10^3/uL (1.70-6.50) Absolute Lymphs (auto) 1.75 10^3/uL 10^3/uL (1.00-3.00) Absolute Monos (auto) 0.58 10^3/uL 10^3/uL (0.30-0.80) Absolute Eos (auto) 0.13 10^3/uL 10^3/uL (0.03-0.40) Absolute Basos (auto) 0.08 10^3/uL 10^3/uL (0.02-0.10) Absolute Nucleated RBC 0.00 10^3/uL 10^3/uL (0-0.01) Immature Gran % 0.6 % % (0.0-1.1) Immature Gran # 0.03 10^3/uL 10^3/uL (0.00-0.10) PT 13.0 SEC SEC (12.0-15.0) INR 0.96 (0.83-1.16) APTT 27.7 SEC SEC (23.0-38.0) Sodium 139 mEq/L mEq/L (135-145) Potassium 4.5 mEq/L mEq/L (3.3-5.0) Chloride 104 mEq/L mEq/L (97-110) Carbon Dioxide 27 mEq/l mEq/l (22-31) Anion Gap 8 mEq/L mEq/L (8-16) BUN 11 mg/dL mg/dL (7-23) Creatinine 0.8 mg/dL mg/dL (0.7-1.3) Estimated GFR > 60 Glucose 96 mg/dL mg/dL (70-100) Calcium 9.8 mg/dL mg/dL (8.5-10.4) Total Bilirubin 0.8 mg/dL mg/dL (0.1-1.4) Conjugated Bilirubin 0.4 mg/dL mg/dL (0.0-0.5) Unconjugated Bilirubin 0.4 mg/dL mg/dL (0.0-1.1) AST 123 IU/L H IU/L (17-59) ALT 228 IU/L H IU/L (21-72) Alkaline Phosphatase 73 IU/L IU/L (38-126) Total Protein 7.4 g/dL g/dL (6.3-8.2) Albumin 4.4 g/dL g/dL (3.5-5.0) Lipase 94 IU/L IU/L (23-300) Medications Given: Discontinued Medications Sodium Chloride (Ns) 1,000 mls @ 0 mls/hr IV EDNOW ONE; Wide Open PRN Reason: Protocol Stop: 02/02/18 07:27 Last Admin: 02/02/18 07:38 Dose: 1,000 mls Ondansetron HCl (Zofran) 4 mg IVP EDNOW ONE Stop: 02/02/18 07:27 Last Admin: 02/02/18 07:38 Dose: 4 mg Departure - Departure Disposition: Home, Routine, Self-Care Clinical Impression: Upper GI bleed Condition: Good Instructions: Gastrointestinal Bleeding (ED) Additional Instructions: 1. Please contact the outbound telemarketing representative you have been referred to today to schedule a follow-up visit. Please let them know that your case was discussed with Dr. Nikolas Teran and they would like to see you in the office for close follow-up. 2. Continue taking the proton pump inhibitor which you have been prescribed. Referrals: Nikolas Teran MD, FACG [Medical Doctor] - As per Instructions
[2018-02-02] MEDS ORDERED: NS 1,000 ML IV ONE (07:26)
[2018-02-02] MEDS ORDERED: ONDANSETRON 4 MG/2 ML VIAL IVP ONE (07:26)
[2018-02-02 07:37] LABS: PLATELET COUNT 197 10^3/uL (150-400)
[2018-02-02 07:46] LABS: INR 0.96 (0.83-1.16)
[2018-02-02 09:06] VITALS: BP 135/89
== END 2018-02-02 09:03 | disposition home or self-care (01) ==
DX: K92.2 Gastrointestinal hemorrhage, unspecified (principal); E86.9 Volume depletion, unspecified; F17.200 Nicotine dependence, unspecified, uncomplicated
CPT/HCPCS: 96374; J2405

== ENCOUNTER → 2018-03-02 | Outpatient (CLI) | payer OTHER | LOC: BRMIMAGING 08:51 | PROVIDERS: ATTEND Preventive Medicine Occupational Medicine | DX: M25.532 Pain in left wrist (principal) | CPT/HCPCS: 73110-PO ==